=== PATIENT | male | born 1955 | race Caucasian/White ===

== ENCOUNTER 2020-07-08 13:16 | Outpatient (RCR) | payer MEDICARE, OTHER, SELFPAY | END 2020-08-17 08:00 | disposition home or self-care (01) | LOC: HO.WCC 13:16 | PROVIDERS: Visit Provider Physician Assistant | DX: L59.8 Other specified disorders of the skin and subcutaneous tissue related to radiation (principal); C02.9 Malignant neoplasm of tongue, unspecified; C14.0 Malignant neoplasm of pharynx, unspecified | CPT/HCPCS: 99183; 99203 ==

== ENCOUNTER 2020-07-09 09:20 | Outpatient (REF) | payer MEDICARE, OTHER, SELFPAY ==
--- NOTE | ~2020-07-09 | XR_ITS ---
EXAMINATION: XR CHEST CLINICAL INFORMATION: COPD COMPARISON: None TECHNIQUE: 2 views of the chest were obtained. FINDINGS: The cardiac and mediastinal contours are normal. The lungs are well inflated. The lungs are clear. There is no pleural effusion or pneumothorax. There is an old left clavicle fracture. There are degenerative changes of the spine. XR/XR chest 2V IMPRESSION: Well-inflated lungs suggestive of COPD. No evidence for acute disease in the chest.
[2020-07-09 10:37] LABS: MANUAL DIFF FLAG NO
[2020-07-09 11:02] LABS: Anion Gap 11 (12-20); Basophils Percent Auto 0.9 % (0-2); Blood Urea Nitrogen 15 mg/dL (9-16); C Reactive Protein 0.25 mg/dL (< or = 0.50); Calcium 9.5 mg/dL (8.4-10.2); Carbon Dioxide 31 mmol/L (22-29); Chloride 103 mmol/L (96-108); Eosinophils Absolute Auto 0.1 X10*3/uL (0.0-0.4); Eosinophils Percent Auto 1.7 % (0-4); Estimated Glomerular Filt Rate > 60; Glucose Random 105 mg/dL (60-115); Hemoglobin 11.6 g/dl (14.0-18.0); Imm Gran Abs Auto 0.01 X10*3/uL (0.00-0.03); Imm Gran Pct Auto 0.2 % (0.0-0.4); Lymphocytes Absolute Auto 0.7 X10*3/uL (1.2-4.9); Lymphocytes Percent Auto 15.7 % (20-40); Mean Corpuscular HGB Conc 32.2 g/dl (31.0-36.0); Mean Corpuscular Hemoglobin 29.4 pg (27.0-33.0); Mean Corpuscular Volume 91.1 fL (80-98); Mean Platelet Volume 9.4 fL (9.4-12.4); Monocytes Absolute Auto 0.3 X10*3/uL (0.1-1.2); Monocytes Percent Auto 6.9 % (2-11); Neutrophils Absolute Auto 3.5 X10*3/uL (2.0-8.3); Neutrophils Percent Auto 74.6 % (45-73); Platelet Count 267 X10*3/uL (160-400); Potassium 4.3 mmol/L (3.3-5.1); Red Blood Count 3.95 X10*6/uL (4.60-5.80); Red Cell Distribution Width 13.6 % (11.0-16.0); Sodium 141 mmol/L (135-145); White Blood Count 4.6 X10*3/uL (4.8-10.8)
[2020-07-09 11:15] LABS: Estimated Average Glucose 108 mg/dL; Hemoglobin A1c % 5.4 %
[2020-07-09 12:29] LABS: Erythrocyte Sedimentation Rate 16 MM/HR (0-15)
== END 2020-07-09 09:21 | disposition home or self-care (01) ==
LOC: HO.LAB 09:20
PROVIDERS: Visit Provider Physician Assistant
DX: J44.9 Chronic obstructive pulmonary disease, unspecified (principal)
CPT/HCPCS: 36415; 71046; 80048; 83036; 84134; 85025; 85652; 86140

== ENCOUNTER 2020-08-18 07:48 | Outpatient (RCR) | payer MEDICARE, OTHER, SELFPAY | END 2020-09-25 10:00 | disposition home or self-care (01) | LOC: HO.WCC 07:48 | PROVIDERS: Visit Provider Physician Assistant | DX: L59.8 Other specified disorders of the skin and subcutaneous tissue related to radiation (principal); R13.10 Dysphagia, unspecified; C14.0 Malignant neoplasm of pharynx, unspecified; C02.9 Malignant neoplasm of tongue, unspecified; Z87.891 Personal history of nicotine dependence | CPT/HCPCS: 99183; 99211; 99212 ==

== ENCOUNTER 2020-10-01 13:30 | Inpatient (IN) | payer MEDICARE, OTHER, SELFPAY ==
[2020-10-01] VITALS (7 sets, daily range): BP systolic 102–120; BP diastolic 58–76; PULSE 74–121; RESP 13–20; TEMP 36.6–37.3; O2SAT 98–99; BMI 24.7
--- NOTE | ~2020-10-01 | XR_ITS ---
EXAMINATION: XR HIP, RIGHT CLINICAL INFORMATION: Fall, right hip pain, limited range of motion. COMPARISON: None TECHNIQUE: Frontal views of the pelvis and AP and crosstable lateral views of the right hip are obtained for 4 views. FINDINGS: There is a nondisplaced intertrochanteric fracture right hip. There is also nondisplaced transverse oriented fracture superior aspect greater trochanter. There is no destructive process. No dislocation. There are mild degenerative changes bilateral hips. There are degenerative changes lower lumbar spine with multilevel vertebral spurring. The bony pelvis appears intact. No diastases SI joints or pubis. There is some calcification adjacent to the right ischial tuberosity may be related to calcific tendinosis. Soft tissue densities adjacent to the lateral aspect iliac crests correspond to superficial soft tissue folds. Bowel gas unremarkable. XR/XR hip RT w PEL1V IMPRESSION: Intertrochanteric fracture right hip. Also small nondisplaced fracture superior aspect greater trochanter.
--- NOTE | ~2020-10-01 | XR_ITS ---
EXAMINATION: XR CHEST CLINICAL INFORMATION: Trauma, hip fracture COMPARISON: Chest radiographs 07/09/2020 TECHNIQUE: Supine AP x2 views of the chest are obtained. FINDINGS: Lungs are clear. There is no hyperinflation, airspace consolidation, vascular congestion, or effusion. The costophrenic sulci are well-defined. The heart is normal in size. The hilar and mediastinal contours are normal. No visible acute bony abnormality. XR/XR chest 1V IMPRESSION: Unremarkable examination.
--- NOTE | ~2020-10-01 | FL_ITS ---
EXAMINATION: Intraoperative fluoroscopy CLINICAL INFORMATION: Right hip fracture COMPARISON: None. TECHNIQUE: Intraoperative fluoroscopy was provided for use by Dr. Javed. A total of 4 images were saved to PACS. A radiologist was not present during imaging. Today's dictation is only for administrative purposes to document intraoperative fluoroscopic usage. TOTAL FLUOROSCOPIC TIME: 1.1 minutes FL/FL guidance in OR FINDINGS~\^^ Intraoperative fluoroscopy provided for use by Dr. Javed. Please see operative note for detailed findings.
[2020-10-01] MEDS: oxyCODONE HCl Immed Release 5 MG TABLET PO (14:16)
--- NOTE | 2020-10-01 14:54 | ED.FALL ---
HPI - Fall General Chief Complaint: Extremity Injury, Lower Stated Complaint: FALL, RIGHT HIP PAIN Time Seen by Provider: 10/01/20 13:40 Source: patient and EMS Mode of arrival: EMS Limitations: no limitations History of Present Illness HPI Narrative: 65-year-old male with a past medical history of tongue cancer presenting to the ED with complaints of right hip pain via EMS after he pulled the branch too hard and fell onto his right hip while performing yd work. He reports he did not have any symptoms prior to the fall and he only has pain to the right hip after the fall. He denies head injury or loss of consciousness. He denies being on any blood thinners. He denies any other symptoms complaints or concerns at this time. MD complaint: fall Onset (ago): minute(s) (Prior to arrival) Fall from: standing Fall witnessed: no Place fall occurred: street (Outside) Loss of consciousness: none Prolonged down time: no Symptoms prior to fall: none Context: tripped/slipped Location of injury: other (Right hip) Severity: moderate Quality: aching Associated symptoms (after fall): other (Only pain to right hip) Related Data Home Medications Medication Instructions Recorded Confirmed apremilast 30 mg tablet (Otezla) 1 tab PO BID 10/01/20 10/01/20 Allergies Allergy/AdvReac Type Severity Reaction Status Date / Time No Known Allergies Allergy Verified 10/01/20 13:47 Review of Systems Review of Systems: Constitutional : No Fever, No Chills ENT/Mouth : No Ear Pain, No Hoarseness, No sore throat Eyes: No Eye Pain, No Swelling, No Redness, No Foreign Body Cardiovascular : No Chest Pain, No SOB Respiratory : No Cough, No Dyspnea Gastrointestinal : No Nausea, No Vomiting, No Diarrhea, No abdominal Pain Genitourinary : No Dysuria, No Hematuria Musculoskeletal : Positive joint pain, No Myalgias, No Joint Swelling Skin : No Skin lacerations, No rash Neuro : No Weakness, No Numbness, No Paresthesias, No Loss of Consciousness, No Dizziness, No Headache Psych : No Anxiety/Panic, No Depression Heme/Lymph: no easy bruising, no Lymphadenopathy Endocrine : No Polyuria, No Polydipsia Yes all other systems are reviewed and are negative [facility] Past Medical History Attestation statement: The following information was validated with the patient. Medical History Tongue cancer Social History Social History Advance Directives: Yes Advance Directives Information Provided: Yes Advance Directives on File: No Physical Exam Vital Signs: Vital Signs: Last Vital Signs Temp 97.9 F 10/01/20 13:45 Pulse 74 10/01/20 15:56 Resp 18 10/01/20 15:56 BP 116/63 10/01/20 15:56 Pulse Ox 99 10/01/20 15:56 Body Mass Index 24.7 vital signs have been reviewed as normal and appeared to be correct. Blood pressure normal. Heart rate normal. Respiration rate normal. Temperature normal. Oxygen saturation normal. Appearance: Alert. Oriented X3. No acute distress. Head: Normal external exam. Normocephalic. Atraumatic. Eyes: PERRLA. EOMI. Conjunctiva and sclera normal. Eyelids normal. ENT: Pharynx normal. Uvula midline. Moist mucous membranes. Neck: Normal inspection. Neck supple. FROM. No adenopathy. No meningeal signs. CVS: Normal heart rate and rhythm. Heart sound normal. Pulses normal throughout. No murmurs/rales/gallops. Respiratory: No respiratory distress. Painless inspiration. Breath sounds normal. No wheezes/rales/rhonchi noted. Chest nontender. No accessory muscle usage noted or decreased air movement noted. Abdomen: Soft and nontender. Bowel sounds normal in all 4 quadrants. No distention noted. No organomegaly noted. No visible injury noted. Back: Full range of motion noted. No rashes/lesion/induration/fluctuance or signs of infection noted. Skin: Skin warm and dry. Normal skin color. Normal skin turgor. No rashes/lesions/lacerations noted. Extremities: Patient with tenderness to palpation to right hip with limited range of motion external rotation and mild shortening of the right leg. Otherwise all other extremities exhibit normal range of motion and nontender. Neuro: Oriented X 3. No motor deficit. No sensory deficit. Reflexes normal. No focal neuro deficits noted. Vascular: + radial pulses/+ 2 distal pedal pulses/+2 dorsalis pedis b/l. Normal cap refill. No cyanosis noted to upper extremity nails and lower extremity toes nails. Course Course Course Narrative: 14pm - 65-year-old male presenting to the ED with complaints of right hip pain after he pulled a branch to hard while doing yd work at his house falling onto his right hip with pain to right hip. He denies head injury or loss of consciousness. Not on any blood thinners. Denies any other injuries complaints or concerns at this time. On exam patient has tenderness to palpation to right hip with external rotation and mild shortening with limited range of motion due to pain. Otherwise no focal deficits are noted. Gait not tested due to pain. Plan: Labs, chest x-ray for medical clearance, EKG for medical clearance, right hip x-ray, type and screen. Provide oxycodone for the patient's pain and re-evaluate. Reevaluation(s) Reevaluation #1: - right hip x-ray revealed Intertrochanteric fracture right hip. Also small nondisplaced fracture superior aspect greater trochanter. - therefore consulted with Orthopedic Ta-JATINDER Pompa and she recommended Medicine to admit the patient due to his over 58 and that they will plan for surgery. - I discussed this with the patient he understands agrees with this plan at this time I will give him some Dilaudid as well due to he reports oxycodone is not providing any symptomatic relief. - still awaiting labs. Time: 15:49 Reevaluation #2: - labs reviewed patient with a mild baseline anemia similar compared to prior. BUN 21. Random glucose 152. Total protein 6.2. Otherwise all other labs are within normal limits. COVID swab negative. - patient will be admitted at this time to Dr. Laird Time: 16:[address] [facility] - Fall Medical Records Attestation: I reviewed the patient's medical records. Lab Data Attestation: I reviewed the patient's lab results. Result diagrams: 10/01/20 15:45 10/01/20 15:45 Labs: Lab Results 10/01/20 10/01/20 10/01/20 Range/Units 15:45 15:45 15:45 WBC 8.0 (4.8-10.8) X10*3/uL RBC 3.71 L (4.60-5.80) X10*6/uL Hgb 11.3 L (14.0-18.0) g/dl Hct 33.9 L (42-52) % MCV 91.4 (80-98) fL MCH 30.5 (27.0-33.0) pg MCHC 33.3 (31.0-36.0) g/dl RDW 13.5 (11.0-16.0) % Plt Count 215 (160-400) X10*3/uL MPV 9.3 L (9.4-12.4) fL Immature Gran % (Auto) 0.5 H (0.0-0.4) % Neut % (Auto) 88.4 H (45-73) % Lymph % (Auto) 4.9 L (20-40) % Pitt % (Auto) 4.5 (2-11) % Eos % (Auto) 1.3 (0-4) % Baso % (Auto) 0.4 (0-2) % Lymph # (Auto) 0.4 L (1.2-4.9) X10*3/uL Pitt # (Auto) 0.4 (0.1-1.2) X10*3/uL Eos # (Auto) 0.1 (0.0-0.4) X10*3/uL Baso # (Auto) 0.0 (0.0-0.2) X10*3/uL Abs Immat Gran (auto) 0.04 H (0.00-0.03) X10*3/uL Absolute Neuts (auto) 7.1 (2.0-8.3) X10*3/uL Absolute Nucleated RBC 0.000 (0.0-0.012) X10*3/uL Nucleated RBC % (auto) 0.0 (0.0-0.2) /100WBC PT (9.9-13.0) SEC INR (0.9-1.1) Sodium (135-145) mmol/L Potassium (3.3-5.1) mmol/L Chloride (96-108) mmol/L Carbon Dioxide (22-29) mmol/L Anion Gap (12-20) BUN (9-16) mg/dL Creatinine (0.5-1.4) mg/dL Estim Creat Clear Calc Estimated GFR Random Glucose (60-115) mg/dL Calcium (8.4-10.2) mg/dL Magnesium 1.9 (1.6-2.6) mg/dL Total Bilirubin (0.0-1.0) mg/dL AST (5-37) U/L ALT (0-40) U/L Alkaline Phosphatase (39-117) U/L Total Protein (6.5-8.0) g/dL Albumin (3.5-5.0) g/dL COVID-19 (LYNNETTE) Negative (Negative) COVID-19 Clin Com See Note Blood Type Antibody Screen 10/01/20 10/01/20 10/01/20 Range/Units 15:45 15:45 15:45 WBC (4.8-10.8) X10*3/uL RBC (4.60-5.80) X10*6/uL Hgb (14.0-18.0) g/dl Hct (42-52) % MCV (80-98) fL MCH (27.0-33.0) pg MCHC (31.0-36.0) g/dl RDW (11.0-16.0) % Plt Count (160-400) X10*3/uL MPV (9.4-12.4) fL Immature Gran % (Auto) (0.0-0.4) % Neut % (Auto) (45-73) % Lymph % (Auto) (20-40) % Pitt % (Auto) (2-11) % Eos % (Auto) (0-4) % Baso % (Auto) (0-2) % Lymph # (Auto) (1.2-4.9) X10*3/uL Pitt # (Auto) (0.1-1.2) X10*3/uL Eos # (Auto) (0.0-0.4) X10*3/uL Baso # (Auto) (0.0-0.2) X10*3/uL Abs Immat Gran (auto) (0.00-0.03) X10*3/uL Absolute Neuts (auto) (2.0-8.3) X10*3/uL Absolute Nucleated RBC (0.0-0.012) X10*3/uL Nucleated RBC % (auto) (0.0-0.2) /100WBC PT 11.4 (9.9-13.0) SEC INR 1.0 (0.9-1.1) Sodium 140 (135-145) mmol/L Potassium 4.2 (3.3-5.1) mmol/L Chloride 106 (96-108) mmol/L Carbon Dioxide 26 (22-29) mmol/L Anion Gap 12 (12-20) BUN 21 H (9-16) mg/dL Creatinine 1.02 (0.5-1.4) mg/dL Estim Creat Clear Calc 72.5 Estimated GFR > 60 Random Glucose 152 H D (60-115) mg/dL Calcium 9.5 (8.4-10.2) mg/dL Magnesium (1.6-2.6) mg/dL Total Bilirubin 0.3 (0.0-1.0) mg/dL AST 12 (5-37) U/L ALT 16 (0-40) U/L Alkaline Phosphatase 72 (39-117) U/L Total Protein 6.2 L (6.5-8.0) g/dL Albumin 3.9 (3.5-5.0) g/dL COVID-19 (LYNNETTE) (Negative) COVID-19 Clin Com Blood Type O Positive Antibody Screen NEGATIVE Imaging Data Right hip and pelvis x-ray: Attestation: I personally reviewed and interpreted this imaging study as follows: Radiologist's impression: FINDINGS: There is a nondisplaced intertrochanteric fracture right hip. There is also nondisplaced transverse oriented fracture superior aspect greater trochanter. There is no destructive process. No dislocation. There are mild degenerative changes bilateral hips. There are degenerative changes lower lumbar spine with multilevel vertebral spurring. The bony pelvis appears intact. No diastases SI joints or pubis. There is some calcification adjacent to the right ischial tuberosity may be related to calcific tendinosis. Soft tissue densities adjacent to the lateral aspect iliac crests correspond to superficial soft tissue folds. Bowel gas unremarkable.? XR/XR hip RT w PEL1V IMPRESSION: Intertrochanteric fracture right hip. Also small nondisplaced fracture superior aspect greater trochanter. Chest x-ray: Attestation: I personally reviewed and interpreted this imaging study as follows: Radiologist's impression: FINDINGS: Lungs are clear. There is no hyperinflation, airspace consolidation, vascular congestion, or effusion. The costophrenic sulci are well-defined. The heart is normal in size. The hilar and mediastinal contours are normal. No visible acute bony abnormality. XR/XR chest 1V IMPRESSION: Unremarkable examination. ECG Data Attestation: I personally reviewed and interpreted this ECG as follows: ECG interpretation date: 10/01/20 ECG interpretation time: 15:29 Interpretation: Normal sinus rhythm at a ventricular rate of 76 with a normal ND interval normal QRS duration normal QT/QTC interval. No acute ischemic changes are noted. No prior EKGs to compare to in our system at this time. Critical Care Time Critical Care Time Critical Care Time: Yes Total Critical Care Time: 60 Attestation: I personally attest to this time spent taking care of the patient Discharge Plan Discharge Clinical Impression: Fall, Closed intertrochanteric fracture of right femur, Closed fracture of greater trochanter of right femur Patient Disposition: Admitted As Inpatient
--- NOTE | 2020-10-01 15:11 | ECG_ITS ---
Test Reason : FALL Blood Pressure : / mmHG Vent. Rate : 076 BPM Atrial Rate : 076 BPM P-R Int : 146 ms QRS Dur : 086 ms QT Int : 398 ms P-R-T Axes : 077 069 061 degrees QTc Int : 447 ms Normal sinus rhythm Normal ECG No previous ECGs available Referred By: Yoselin Gooden Electronically Signed By:KINDRA SANON
[2020-10-01 15:52] LABS: MANUAL DIFF FLAG NO
[2020-10-01] MEDS: Morphine Sulfate 4 MG/ML CARTRIDGE IVPUSH ×2 (15:56→22:27)
[2020-10-01] MEDS: HYDROmorphone HCl 1 MG/ML SYRINGE IVPUSH (15:56)
[2020-10-01 15:58] LABS: Basophils Percent Auto 0.4 % (0-2); Eosinophils Absolute Auto 0.1 X10*3/uL (0.0-0.4); Eosinophils Percent Auto 1.3 % (0-4); Hematocrit 33.9 % (42-52); Hemoglobin 11.3 g/dl (14.0-18.0); Imm Gran Abs Auto 0.04 X10*3/uL (0.00-0.03); Imm Gran Pct Auto 0.5 % (0.0-0.4); Lymphocytes Absolute Auto 0.4 X10*3/uL (1.2-4.9); Lymphocytes Percent Auto 4.9 % (20-40); Mean Corpuscular HGB Conc 33.3 g/dl (31.0-36.0); Mean Corpuscular Hemoglobin 30.5 pg (27.0-33.0); Mean Corpuscular Volume 91.4 fL (80-98); Mean Platelet Volume 9.3 fL (9.4-12.4); Monocytes Absolute Auto 0.4 X10*3/uL (0.1-1.2); Monocytes Percent Auto 4.5 % (2-11); Neutrophils Absolute Auto 7.1 X10*3/uL (2.0-8.3); Neutrophils Percent Auto 88.4 % (45-73); Platelet Count 215 X10*3/uL (160-400); Red Blood Count 3.71 X10*6/uL (4.60-5.80); Red Cell Distribution Width 13.5 % (11.0-16.0)
[2020-10-01 16:03] LABS: Prothrombin Time 11.4 SEC (9.9-13.0)
[2020-10-01 16:08] LABS: COVID-19 Test Negative (Negative)
[2020-10-01 16:15] LABS: Magnesium 1.9 mg/dL (1.6-2.6)
[2020-10-01 16:16] LABS: Alanine Aminotransferase 16 U/L (0-40); Albumin Level 3.9 g/dL (3.5-5.0); Alkaline Phosphatase 72 U/L (39-117); Anion Gap 12 (12-20); Aspartate Amino Transferase 12 U/L (5-37); Bilirubin Total 0.3 mg/dL (0.0-1.0); Blood Urea Nitrogen 21 mg/dL (9-16); Calcium 9.5 mg/dL (8.4-10.2); Carbon Dioxide 26 mmol/L (22-29); Chloride 106 mmol/L (96-108); Creatinine Clr Calc Pharmacy 72.5; Estimated Glomerular Filt Rate > 60; Glucose Random 152 mg/dL (60-115); Potassium 4.2 mmol/L (3.3-5.1); Sodium 140 mmol/L (135-145); Total Protein 6.2 g/dL (6.5-8.0)
--- NOTE | 2020-10-01 16:28 | PHA.MEDREC ---
Pharmacy Consult ? Medication Reconciliation Pharmacy has completed the medication reconciliation. Patient is only on Otezla. Patient's reports that she will bring in Otezla so he can continue taking the medication while inpatient. Clau Russo, GeorgiD
--- NOTE | 2020-10-01 18:14 | HP_ITS ---
DATE OF SERVICE: 10/01/2020 CHIEF COMPLAINT: Right hip pain. HISTORY OF PRESENT ILLNESS: This is a 65-year-old gentleman with past medical history significant for tongue cancer status post radiation treatment and chemotherapy, recently had a 6-month checkup and was told that everything is fine, presented to [facility] due to right hip pain via EMS. As per the patient he was trying to pull a branch that was too heavy. When the branch came down, the patient fell on his right hip and immediately sustained significant pain, unable to get up. Therefore, called 911 and brought to the emergency room. He denied any head injury, loss of consciousness. In the emergency room, x-rays of the hip revealed intertrochanteric fracture of right hip, also some small nondisplaced fracture of superior aspect of greater trochanter. Patient was treated in the emergency room with IV morphine followed by IV Dilaudid with good relief in symptoms. At present, patient denies any chest pain, no shortness of breath. He denies any headache, lightheadedness, or dizziness. He had no preceding symptoms of near syncope prior to fall. The patient is now being admitted to [facility] for further treatment and evaluation of right hip fracture. PAST MEDICAL HISTORY: Significant for history of psoriasis for which currently he is on Otezla twice daily. He also diagnosed to have tongue cancer last year, status post 35 radiation treatments as well as chemotherapy, being followed at [facility], next appointment with radiologist is in November of 2020. He is being followed by Oncology on yearly basis. 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 He is not a current smoker, but a former smoker. He denies alcohol. He is and lives with his . FAMILY HISTORY: Reviewed and noncontributory. He denies any premature history of coronary artery disease. MEDICATIONS: He is on Otezla 1 tablet p.o. b.i.d. ALLERGIES: HE HAS NO KNOWN DRUG ALLERGIES. REVIEW OF SYSTEMS: CAR BODY INSPECTOR: No headache, no dizziness. CVS: No chest pain or palpitation. RESPIRATORY: No cough or sputum production. GI: He denies any GI symptoms of nausea, vomiting, or diarrhea. : He has no symptoms. PHYSICAL EXAMINATION: GENERAL: The patient is resting comfortably in bed. Does not appear to be in acute distress. VITAL SIGNS: BP 116/63 with a pulse of 74, respiratory rate 18, room air finger oximetry of 99. HEENT: Pupils equal, round, and reactive to light and accommodation. Extraocular muscles intact. Anicteric sclerae. NECK: Supple. No JVD. LUNGS: Clear to auscultation bilaterally. HEART: Regular rate and rhythm. ABDOMEN: Soft, nontender. Bowel sounds are audible. EXTREMITIES: Without clubbing, cyanosis, or edema. SKIN: Without any rashes. There are no bruises noted. LABORATORY DATA: WBC 8000, hemoglobin 11.3, hematocrit 34, platelet count of 215. INR of 1. Sodium 140, potassium 4.2, BUN 21, and a creatinine of 1, blood sugar 152, magnesium 1.9. Normal LFTs. COVID-19 is negative. Blood type is O positive. EKG showed no acute ischemic changes. ASSESSMENT AND PLAN: This is a 65-year-old gentleman with prior history of psoriasis, currently on Otezla; as well as history of tongue cancer, not amenable to surgery, therefore status post radiation and chemotherapy; presented to [facility] after a mechanical fall and sustained a right hip fracture. 1. Right hip intertrochanteric fracture. The patient will be admitted to medical floor, will be placed on oxycodone, and IV morphine for pain control. We will add as needed stool softeners, incentive spirometry, and we will obtain orthopedic consultation. The patient can proceed with hip surgery. Does not require any further cardiac intervention. Has intermediate risk. Seems to have chronic anemia will follow CBC closely. 2. History of psoriasis, we will hold Otezla. 3. History of lung cancer, being followed at [facility], recommended to continue outpatient followup with radiation oncologist and oncologist as previously planned. 4. Deep vein thrombosis prophylaxis. The patient will be placed on compression boots. MD TARYN Red/VALDO / [id number] MTDD
--- NOTE | 2020-10-01 21:55 | P.CONOP_ITS ---
History of Present Illness HPI Consult date: 10/01/20 Chief complaint: Right hip fracture Narrative: :? This is a 65-year-old gentleman with past medical history significant for tongue cancer status post radiation treatment and chemotherapy, recently had a 6-month checkup and was told that everything is fine. He states just prior to arrival he was trying to pull a vine and it let got which caused him to fall, the patient fell on his right hip and was unable to get up or ambulate. Therefore, called 911 and brought to the emergency room.? He denied any head injury, loss of consciousness.? In the emergency room, x-rays of the hip revealed intertrochanteric fracture of right hip, also some small nondisplaced fracture of superior aspect of greater trochanter.?The patient was admitted to the medical service and orthopedics was called for further recommendations. Review of Systems Review of Systems: Yes all other systems are reviewed and are negative PMFSH Past Medical History Medical History (Updated 10/01/20 @ 15:53 by JAYNE Dockery) Tongue cancer Surgical History Surgical History (Updated 10/01/20 @ 21:59 by Nithya Rivero PA-C) History of appendectomy Status post subacromial decompression Social History Social History (Updated 10/01/20 @ 22:00 by Nithya Rivero PA-C) Household Members: Spouse Patient Tobacco Use Status: Former Tobacco user Use of substances other than those prescribed or required for medical reasons: No Advance Directives: Yes Advance Directives Information Provided: Yes Advance Directives on File: No Meds Allergies Allergy/AdvReac Type Severity Reaction Status Date / Time No Known Allergies Allergy Verified 10/01/20 13:47 Active Medications: Current Medications Generic Name Dose Route Start Last Admin Trade Name Freq PRN Reason Stop Dose Admin Acetaminophen 650 mg 10/01/20 16:26 Acetaminophen 325 Mg Tablet PO Q6H PRN Pain, Mild (Pain Scale 1-3) Magnesium Hydroxide 30 ml 10/01/20 16:26 Milk Of Magnesia 30 Ml Oral.Susp PO DAILY PRN Constipation Melatonin 6 mg 10/01/20 16:26 Melatonin 3 Mg Tablet PO BEDTIME PRN Insomnia Morphine Sulfate 4 mg 10/01/20 16:31 Morphine Sulfate 4 Mg/Ml Cartridge IVPUSH Q4H PRN Pain, Severe (Pain Scale 7-10) Ondansetron HCl 4 mg 10/01/20 16:26 Ondansetron Hcl 4 Mg/2 Ml Vial IVPUSH Q8H PRN Nausea and Vomiting Oxycodone HCl 5 mg 10/01/20 16:29 Oxycodone Hcl Immed Release 5 Mg Tablet PO Q6H PRN Pain, Severe (Pain Scale 7-10) Pharmacy Consult 1 each 10/01/20 15:49 Consult Rx Perform Med Rec MISCELLANE ONCE PRN Consult order Sodium Chloride 3 ml 10/02/20 00:00 0.9 % Sodium Chloride Flush 3 Ml Syringe IVFSH [facility] Medications Medication Instructions Recorded Confirmed Last Taken Type apremilast 30 mg tablet (Otezla) 1 tab PO BID 10/01/20 10/01/20 10/01/20 History Physical Exam Vital Signs: Vital Signs: Last Vital Signs Temp 99.1 F 10/01/20 17:42 Pulse 90 10/01/20 18:22 Resp 16 10/01/20 18:22 BP 106/70 10/01/20 18:22 Pulse Ox 99 10/01/20 18:22 Body Mass Index 24.7 Const: General: cooperative, healthy appearing, comfortable, no acute distress, well developed and alert Orientation/consciousness: patient oriented x3 HENMT: Head: Yes normal to inspection, Yes normocephalic and Yes atraumatic Eyes: General: appearance normal, both eyes and all related structures Neck: Neck: Yes normal visual inspection and Yes no lymphadenopathy Resp: Effort & Inspection: normal respiratory effort and able to speak in complete sentences Cardio: Rate: regular rate Peripheral pulses: Peripheral pulses 2+ throughout GI: Inspection: Yes normal to inspection Palpation (GI): Soft to palpation Skin: General skin exam: no rashes or lesions noted Neuro: General: patient oriented x3 Extrem: Other: Right leg skin intact, no open wounds or lacerations. Leg is short and ER, pain wtih log roll. Inability to SLR. pulses present. . xrays of the right hip demonstrate intertrochanteric fracture with greater troch fx. Psych: Appearance: grossly normal Mental Status: mental status grossly normal Results Labs Result Diagrams: 10/01/20 15:45 10/01/20 15:45 Labs: Abnormal lab results 10/01/20 10/01/20 Range/Units 15:45 15:45 RBC 3.71 L (4.60-5.80) X10*6/uL Hgb 11.3 L (14.0-18.0) g/dl Hct 33.9 L (42-52) % MPV 9.3 L (9.4-12.4) fL Immature Gran % (Auto) 0.5 H (0.0-0.4) % Neut % (Auto) 88.4 H (45-73) % Lymph % (Auto) 4.9 L (20-40) % Lymph # (Auto) 0.4 L (1.2-4.9) X10*3/uL Abs Immat Gran (auto) 0.04 H (0.00-0.03) X10*3/uL BUN 21 H (9-16) mg/dL Random Glucose 152 H D (60-115) mg/dL Total Protein 6.2 L (6.5-8.0) g/dL H & H 10/01/20 Range/Units 15:45 Hgb 11.3 L (14.0-18.0) g/dl Hct 33.9 L (42-52) % Coagulation 10/01/20 Range/Units 15:45 INR 1.0 (0.9-1.1) All other labs normal. Assessment and Plan (1) Closed intertrochanteric fracture of right femur: Status: Acute (2) Closed fracture of greater trochanter of right femur: Status: Acute I discussed the case with Dr Javed and explained the extent of the injury to the patient and options available which include surgical intervention. I explained the procedure in detail along with the length of recovery and rehab course. I explained the risk, benefits and alternatives. Risk including, but not limited to infection, blood clots, bleeding, non union or malunion and nerve/tissue damage to surrounding areas. I answered all their questions and with their understanding they have consented to move forward with Operative Fixation of the right hip . The patient with be T&S, med clearance obtained and NPO after midnight. Procedures Date of Service Date of Service: 10/01/20
[2020-10-01] MEDS: Melatonin 3 MG TABLET 6 MG PO (22:27)
--- NOTE | 2020-10-01 22:36 | PC.NURSE ---
PATIENT REPORTING PAIN, OFFERED THIS SCHEDULED OXYCODONE. PATIENT REFUSING STATING THAT DOES NOT WORK I WANT TO COMBINATION OF MEDICATIONS I GOT FROM THE LAST NURSE, I WAS TWO DIFFERENT MEDICATIONS THAT WORKED OFFERED PRN MORPHINE AND MELATONIN TO SLEEP. PATIENT AGREED DID NOT WANT OXYCODONE AND TYLENOL FOR PAIN REDUCTION. AWAITING BED ASSIGNMENT FOR ADMISSION.
[2020-10-02] VITALS (17 sets, daily range): BP systolic 94–135; BP diastolic 51–80; PULSE 69–100; RESP 16–20; TEMP 35.8–36.9; O2SAT 97–100; BMI 26.8
[2020-10-02] MEDS: 0.9 % Sodium Chloride Flush 3 ML SYRINGE IVFLUSH ×2 (01:15→08:29)
[2020-10-02] MEDS: Morphine Sulfate 4 MG/ML CARTRIDGE IVPUSH (08:28)
--- NOTE | 2020-10-02 09:25 | MHC.CM.PN ---
IMM 10/02/20, EMR REVIEWED, PT ADMITTED W/RIGHT HIP FX, SURGERY SCHEDULED TODAY BETWEEN 11AM-12PM, CM MET W/PT AND WHO WAS AT BEDSIDE, PT REPORTS HE LIVES WITH , IS INDEPENDENT W/ALL CARE, NO DME AND NO HOME SERVICES, PT WILL NEED A SCRIPT FOR A WALKER UPON D/C, PT REPORTS HE PREFERS TO GO HOME W/SERVICES AND DOES NOT WANT STR, PT MAY BE WILLING TO GO IF RECCOMMENDED BY PT, PT VERIFIES PCP AND HCP, PTS TO EMAIL CM COPY. D/C PLAN: HOME W/SERVICES VS STR, TRANSPORT TBD PCP: KATELYNN MOON ONCOLOGIST/RADIOLIGIST EVERY 6MOS AT [facility]
[2020-10-02] MEDS: oxyCODONE HCl Immed Release 5 MG TABLET 10 MG PO ×3 (09:55→23:40)
--- NOTE | 2020-10-02 11:47 | P.CONAN_ITS ---
HPI - Anesthesia Eval Consult details Narrative: 65 yo male patient for Right hip gamma nail PMFSH Active Problems Active Problems: All Active Problems (Updated 10/01/20 @ 15:53 by JAYNE Dockery) Fall (Acute) Closed intertrochanteric fracture of right femur (Acute) Closed fracture of greater trochanter of right femur (Acute) Tongue cancer (Acute) Past Medical History Medical History (Updated 10/02/20 @ 14:01 by Sandra Hinds) Tongue cancer Family History Family history of problems with anesthesia: No Surgical History Surgical History (Updated 10/02/20 @ 11:56 by Sandra Hinds) History of appendectomy Status post subacromial decompression History of Problems with Anesthesia: No Social History Social History Household Members: Spouse Housing: House Patient Tobacco Use Status: Former Tobacco user Tobacco use type: Cigar service: No Current occupational status: retired Meds Allergies Allergy/AdvReac Type Severity Reaction Status Date / Time No Known Allergies Allergy Verified 10/02/20 11:27 Active Medications: Current Medications Generic Name Dose Route Start Last Admin Trade Name Freq PRN Reason Stop Dose Admin Acetaminophen 650 mg 10/01/20 16:26 Acetaminophen 325 Mg Tablet PO Q6H PRN Pain, Mild (Pain Scale 1-3) Dextrose/Sodium Chloride 1,000 mls @ 80 mls/hr 10/02/20 11:30 10/02/20 11:34 D5ns IVCONT Not Given .[id number] DAVID Magnesium Hydroxide 30 ml 10/01/20 16:26 Milk Of Magnesia 30 Ml Oral.Susp PO DAILY PRN Constipation Melatonin 6 mg 10/01/20 16:26 10/01/20 22:27 Melatonin 3 Mg Tablet PO 6 mg BEDTIME PRN Administration Insomnia Morphine Sulfate 4 mg 10/01/20 16:31 10/02/20 08:28 Morphine Sulfate 4 Mg/Ml Cartridge IVPUSH 4 mg Q4H PRN Administration Pain, Severe (Pain Scale 7-10) Ondansetron HCl 4 mg 10/01/20 16:26 Ondansetron Hcl 4 Mg/2 Ml Vial IVPUSH Q8H PRN Nausea and Vomiting Oxycodone HCl 10 mg 10/01/20 23:00 10/02/20 09:55 Oxycodone Hcl Immed Release 5 Mg Tablet PO 10 mg Q6H [facility] Administration Pharmacy Consult 1 each 10/01/20 15:49 Consult Rx Perform Med Rec MISCELLANE ONCE PRN Consult order Sodium Chloride 3 ml 10/02/20 00:00 10/02/20 08:29 0.9 % Sodium Chloride Flush 3 Ml Syringe IVFLUSH 3 ml QSHIFT [facility] Administration Home Medications Medication Instructions Recorded Confirmed Last Taken Type apremilast 30 mg tablet (Otezla) 1 tab PO BID 10/01/20 10/01/20 10/01/20 History Exam Exam Date and Time: October 02, 2020 1147 Height,Weight and Vital Signs: Height 5 ft 10 in Weight 84.7 kg Last Vital Signs Temp 97.7 F 10/02/20 11:28 Pulse 71 10/02/20 11:28 Resp 18 10/02/20 11:28 BP 115/72 10/02/20 11:28 Pulse Ox 99 10/02/20 11:28 Pertinent Lab Results Pertinent Lab Results: Laboratory Tests 10/01/20 10/01/20 10/01/20 15:45 15:45 15:45 WBC 8.0 RBC 3.71 L Hgb 11.3 L Hct 33.9 L MCV 91.4 MCH 30.5 MCHC 33.3 RDW 13.5 Plt Count 215 MPV 9.3 L Immature Gran % (Auto) 0.5 H Neut % (Auto) 88.4 H Lymph % (Auto) 4.9 L [place] % (Auto) 4.5 Eos % (Auto) 1.3 Baso % (Auto) 0.4 Lymph # (Auto) 0.4 L [place] # (Auto) 0.4 Eos # (Auto) 0.1 Baso # (Auto) 0.0 Abs Immat Gran (auto) 0.04 H Absolute Neuts (auto) 7.1 Absolute Nucleated RBC 0.000 Nucleated RBC % (auto) 0.0 PT INR Sodium Potassium Chloride Carbon Dioxide Anion Gap BUN Creatinine Estim Creat Clear Calc Estimated GFR Random Glucose Calcium Magnesium 1.9 Total Bilirubin AST ALT Alkaline Phosphatase Total Protein Albumin COVID-19 (LYNNETTE) Negative COVID-19 Clin Com See Note Blood Type Antibody Screen 10/01/20 10/01/20 10/01/20 15:45 15:45 15:45 WBC RBC Hgb Hct MCV MCH MCHC RDW Plt Count MPV Immature Gran % (Auto) Neut % (Auto) Lymph % (Auto) [place] % (Auto) Eos % (Auto) Baso % (Auto) Lymph # (Auto) [place] # (Auto) Eos # (Auto) Baso # (Auto) Abs Immat Gran (auto) Absolute Neuts (auto) Absolute Nucleated RBC Nucleated RBC % (auto) PT 11.4 INR 1.0 Sodium 140 Potassium 4.2 Chloride 106 Carbon Dioxide 26 Anion Gap 12 BUN 21 H Creatinine 1.02 Estim Creat Clear Calc 72.5 Estimated GFR > 60 Random Glucose 152 H D Calcium 9.5 Magnesium Total Bilirubin 0.3 AST 12 ALT 16 Alkaline Phosphatase 72 Total Protein 6.2 L Albumin 3.9 COVID-19 (LYNNETTE) COVID-19 Clin Com Blood Type O Positive Antibody Screen NEGATIVE EKG 10/01/20: NSR. 76 CXR 10/01/20: Unremarkable exam Airway Mallampati Class: III TM Dist: >3cm (Some recession of lower chin) Neck ROM: Limited Heart: RRR Lungs: CTAB Assessment and Plan Final Anesthetic Review Family History of Problems with Anesthesia: No History of Problems with Anesthesia: No NPO: Yes ASA Class: III Final Preanesthetic Review: No Changes in Pt Med Stat, Meds/Allgs Chart Reviewed, Consent Obtained/Reviewed and Anes Risks/Benef Reviewed Patient Risk: Intermediate Procedure Risk: Intermediate Assessment/Block/Sedation in SS: Assess/Block/Sedation-SS Anesthetic Plan Anesthetic Plan: GA Disposition: Standard PACU and Inp. Admit - Standard Bed
--- NOTE | 2020-10-02 14:28 | W.PM.OPN ---
Operative Note Operative Note Date of Service: 10/02/20 Narrative: OPERATIVE NOTE FOR GAMMA NAIL FIXATION SURGEON:Dr Jaimee Javed MD (Kelly) ELECTRIC ARC FURNACE OPERATOR: No legal administrative assistant PREOP DIAGNOSIS : Intertrochanteric fracture right hip POSTOP DIAGNOSIS: Same OPERATIVE PROCEDURE: OPERATIVE FIXATION rightHIP/FEMUR WITH LOCKED JUAN MANUEL short GAMMA NAIL CLINICAL NOTE: This gentlemanfell and injured his right hip prior to the admission. Was subsequently brought to the emergency department. Was admitted to a gym see with the above diagnosis. After medical clearance and discussing the risks, benefits, and alternatives of the surgery as well as the rehabilitation course he was mutually agreed upon to carry out following procedure. OPERATIVE PROCEDURE Under a generalanesthetic the patient was placed supine on the fracture table. The leftleg was flexed and externally rotated out of the way. The operative rightleg was placed in standard boot traction. Closed reduction was performed under fluoroscopic guidance. This demonstrated the fracture to be reduced in a good position. Therefore the right hip and leg was then prepped and draped in standard barrier technique. Surgical time-out was then performed. The patient was identified. Procedure confirmed. Medical and allergy history is were reviewed. Preoperative antibiotics were given. Standard DVT prophylaxis was in place. All other items were discussed and agreed upon. Standard approach to tip of the trochanter was carried out. This was taken down through subcutaneous tissues with hemostasis achieved along way using electrocautery. Fascia rob was divided along the length of the incision. The muscle was then divided bluntly to the tip of trochanter. Using a curved awl and under fluoroscopic guidance tip of the trochanter was entered. The guidewire was then subsequently passed through the curved awl and was successfully passed into the distal segment. A short gamma nail selected.This nail at 125 degree angle was selected and brought up onto the table. The step Reamer was used in standard fashion. The nail was then assembled onto the guide in standard fashion and then passed over the guidewire across the fracture site when the guidewire was then removed. The nail was then seated until he was in the appropriate position for the lag screw. Through a stab incision using the guide for the 125 degree angle, the guides were set onto the lateral surface of the femur. Under fluoroscopic guidance the guidewire was inserted just inferior to the midline on the AP view and into the center of the head on the lateral view. This was measured to 105 mm and this leg screw was selected and brought up onto the table. The guidewire was over reamed under fluoroscopic guidance. The lag screw was then inserted until it was into the subchondral bone with excellent purchase. The set screw was then placed in standard fashion. And then the guide was removed. Turning attention to the distal lock through the guide the stab incision was made the guides placed along the lateral aspect of the femur was drilled measured and a 37.5 mm locking screw was inserted with excellent purchase length. At this point final images were taken in AP and lateral he positions demonstrating fracture reduced. All the hardware in the appropriate position and therefore we proceeded to closure. Proximal wound was closed using 2. Dexon deep and 2-0 Dexon to approximate the skin. Is the skin was closed with jarocho. Similarly the distal incisions were closed with interrupted 2-0 Dexon and then jarocho. Sterile dressings were then applied. The patient's anesthesia was then reversed. They were taken out of traction and transferred supine to the room bed then to the recovery room in good condition. Intraoperatively there was approximately 100 cc of blood loss. No intraop transfusions or complications
[2020-10-02] MEDS: fentaNYL citrate/PF 100 MCG/2 ML VIAL 50 MCG IVPUSH (14:55)
[2020-10-02] MEDS: fentaNYL citrate/PF 100 MCG/2 ML VIAL 25 MCG IVPUSH (15:00)
--- NOTE | 2020-10-02 15:59 | P.PNIM_ITS ---
Subjective Subjective Date of Service: 10/02/20 Interval History: Patient offers no acute complaints resting comfortably is NPO, complaining of being lightheaded when he gets up, feels hungry. Review of Systems General no headache ,no dizziness, no fever chills. CVS no chest pain, no palpitation. Respiratory no cough no sob. Gastrointestinal no nausea, no vomiting, no abdominal pain Physical Exam Vital Signs: Vital Signs: Last Vital Signs Temp 97.1 F 10/02/20 15:25 Pulse 80 10/02/20 15:25 Resp 17 10/02/20 15:25 BP 117/66 10/02/20 15:25 Pulse Ox 99 10/02/20 15:25 Body Mass Index 26.8 Const: Other: General resting comfortably in no acute distress. Neck supple no JVD. CVS regular rate rhythm, Respiratory lungs clear to auscultation, no respiratory distress, no wheeze, no rhonchi. Gastrointestinal abdomen soft, nontender, bowel sounds audible, no guarding , no rigidity. Extremities no edema. Neuro nonfocal Skin rash left anterior leg and right leg laterally, no open sores Objective Data Current Medications Generic Name Dose Route Start Last Admin Trade Name Freq PRN Reason Stop Dose Admin Acetaminophen 650 mg 10/01/20 16:26 Acetaminophen 325 Mg Tablet PO Q6H PRN Pain, Mild (Pain Scale 1-3) Aspirin 325 mg 10/03/20 22:00 Aspirin 325 Mg Tablet PO BID@1000,2200 [facility] Fentanyl 25 mcg 10/02/20 14:35 10/02/20 15:00 Fentanyl Citrate/Pf 100 Mcg/2 Ml Vial IVPUSH 25 mcg Q5M PRN Administration Pain, Moderate (Pain Scale 4-6 Fentanyl 50 mcg 10/02/20 14:35 10/02/20 14:55 Fentanyl Citrate/Pf 100 Mcg/2 Ml Vial IVPUSH 50 mcg Q5M PRN Administration Pain, Severe (Pain Scale 7-10) Dextrose/Sodium Chloride 1,000 mls @ 80 mls/hr 10/02/20 11:30 10/02/20 11:34 D5ns IVCONT Not Given .[id number] [facility] Ketorolac Tromethamine 15 mg 10/02/20 15:43 Ketorolac Tromethamine 15 Mg/Ml Vial IVPUSH Q6H [facility] Magnesium Hydroxide 30 ml 10/01/20 16:26 Milk Of Magnesia 30 Ml Oral.Susp PO DAILY PRN Constipation Melatonin 6 mg 10/01/20 16:26 10/01/20 22:27 Melatonin 3 Mg Tablet PO 6 mg BEDTIME PRN Administration Insomnia Morphine Sulfate 4 mg 10/01/20 16:31 10/02/20 08:28 Morphine Sulfate 4 Mg/Ml Cartridge IVPUSH 4 mg Q4H PRN Administration Pain, Severe (Pain Scale 7-10) Ondansetron HCl 4 mg 10/01/20 16:26 Ondansetron Hcl 4 Mg/2 Ml Vial IVPUSH Q8H PRN Nausea and Vomiting Ondansetron HCl 4 mg 10/02/20 14:35 Ondansetron Hcl 4 Mg/2 Ml Vial IVPUSH ONCE PRN Nausea and Vomiting Oxycodone HCl 10 mg 10/01/20 23:00 10/02/20 09:55 Oxycodone Hcl Immed Release 5 Mg Tablet PO 10 mg Q6H DAVID Administration Oxycodone HCl 5 mg 10/02/20 14:35 Oxycodone Hcl Immed Release 5 Mg Tablet PO ONCE PRN Pain, Moderate (Pain Scale 4-6 Oxycodone HCl 10 mg 10/02/20 14:35 Oxycodone Hcl Immed Release 5 Mg Tablet PO ONCE PRN Pain, Severe (Pain Scale 7-10) Pharmacy Consult 1 each 10/01/20 15:49 Consult Rx Perform Med Rec MISCELLANE ONCE PRN Consult order Sodium Chloride 3 ml 10/02/20 00:00 10/02/20 08:29 0.9 % Sodium Chloride Flush 3 Ml Syringe IVFLUSH 3 ml QSPRFT DAVID Administration Sodium Chloride 3 ml 10/02/20 16:00 0.9 % Sodium Chloride Flush 3 Ml Syringe IVFLUSH QSHIFT [facility] Labs CBC & Chem 7: 10/01/20 15:45 10/01/20 15:45 Labs: Laboratory Results - last 24 hr 10/01/20 10/01/20 10/01/20 15:45 15:45 15:45 MCV 91.4 MCH 30.5 MCHC 33.3 RDW 13.5 Plt Count 215 MPV 9.3 L Immature Gran % (Auto) 0.5 H Neut % (Auto) 88.4 H Lymph % (Auto) 4.9 L [place] % (Auto) 4.5 Eos % (Auto) 1.3 Baso % (Auto) 0.4 Lymph # (Auto) 0.4 L [place] # (Auto) 0.4 Eos # (Auto) 0.1 Baso # (Auto) 0.0 Abs Immat Gran (auto) 0.04 H Absolute Neuts (auto) 7.1 Absolute Nucleated RBC 0.000 Nucleated RBC % (auto) 0.0 PT INR Anion Gap Estim Creat Clear Calc Estimated GFR Random Glucose Calcium Magnesium 1.9 Total Bilirubin AST ALT Alkaline Phosphatase Total Protein Albumin COVID-19 (LYNNETTE) Negative COVID-19 Clin Com See Note Blood Type Antibody Screen 10/01/20 10/01/20 10/01/20 15:45 15:45 15:45 MCV MCH MCHC RDW Plt Count MPV Immature Gran % (Auto) Neut % (Auto) Lymph % (Auto) [place] % (Auto) Eos % (Auto) Baso % (Auto) Lymph # (Auto) [place] # (Auto) Eos # (Auto) Baso # (Auto) Abs Immat Gran (auto) Absolute Neuts (auto) Absolute Nucleated RBC Nucleated RBC % (auto) PT 11.4 INR 1.0 Anion Gap 12 Estim Creat Clear Calc 72.5 Estimated GFR > 60 Random Glucose 152 H D Calcium 9.5 Magnesium Total Bilirubin 0.3 AST 12 ALT 16 Alkaline Phosphatase 72 Total Protein 6.2 L Albumin 3.9 COVID-19 (LYNNETTE) COVID-19 Clin Com Blood Type O Positive Antibody Screen NEGATIVE Assessment and Plan (1) Anemia: Status: Acute (2) Fall: Status: Acute (3) Closed intertrochanteric fracture of right femur: Status: Acute (4) Tongue cancer: Status: Acute Assessment and Plan: 65-year-old gentleman with prior history of psoriasis, currently on Otezla; as well as history of tongue cancer, not amenable to surgery, therefore status post radiation and chemotherapy; presented to [facility] after a mechanical fall and sustained a right hip fracture. 1. Right hip intertrochanteric fracture.? Good pain control, continue oxycodone and IV morphine, patient seen by orthopedic surgeon and scheduled to undergoes surgery today Will start IV D5 normal saline since patient lightheaded , continue softeners, incentive spirometry, and follow CBC 2. History of psoriasis, will resume Otezla. Family to bring medicine from home. 3. History of tongue cancer, being followed at [facility], recommended to continue outpatient followup with radiation oncologist and oncologist as previously planned. 4. Normocytic anemia, question chronic, hematocrit dropped but stable likely due to acute hip fracture, follow CBC closely, will initiate anemia workup if noted to have further drop in hematocrit 5. Deep vein thrombosis prophylaxis.? on compression boots. Anticoagulation as per Orthopedic surgery. Quality Stroke Does the patient have a stroke diagnosis?: No VTE Prior VTE?: No VTE Risk Level:: Medical - moderate - high VTE Device Contraindication: N/A - Device Ordered VTE Drug Contraindication: Treatment Not Indicated
[2020-10-02] MEDS: Ketorolac Tromethamine 15 MG/ML VIAL IVPUSH ×2 (16:14→21:01)
[2020-10-02] MEDS: Dextrose 5 % and 0.9 % NaCl 1,000 ML 80 ML IVCONT (16:15)
[2020-10-02] MEDS: Melatonin 3 MG TABLET 6 MG PO (23:37)
[2020-10-03] VITALS (8 sets, daily range): BP systolic 104–123; BP diastolic 61–70; PULSE 77–98; RESP 14–18; TEMP 36.1–36.6; O2SAT 98–100
[2020-10-03] MEDS: Ketorolac Tromethamine 15 MG/ML VIAL IVPUSH ×4 (03:08→22:10)
[2020-10-03] MEDS: Dextrose 5 % and 0.9 % NaCl 1,000 ML 80 ML IVCONT (03:14)
[2020-10-03] MEDS: oxyCODONE HCl Immed Release 5 MG TABLET 10 MG PO ×4 (05:59→22:09)
[2020-10-03 06:46] LABS: Hematocrit 28.6 % (42-52); Hemoglobin 9.3 g/dl (14.0-18.0)
--- NOTE | 2020-10-03 07:41 | P.PNOP_ITS ---
Subjective Subjective Date of Service: 10/03/20 Interval history: POD1 s/p lt hip IMN with Dr. Javed. Patient resting comfortably in bed. No overnight events. Pain is well managed. About to work with P.T. and O.T. who were at bedside. Physical Exam Vital Signs: Vital Signs: Last Vital Signs Temp 97.6 F 10/03/20 07:32 Pulse 77 10/03/20 07:32 Resp 17 10/03/20 07:32 BP 111/61 10/03/20 07:32 Pulse Ox 100 10/03/20 07:32 Body Mass Index 26.8 Const: General: cooperative, healthy appearing and no acute distress Resp: Effort & Inspection: normal respiratory effort and able to speak in complete sentences Cardio: Rate: regular rate Peripheral pulses: Peripheral pulses 2+ throughout GI: Palpation (GI): Soft to palpation Skin: Lesions: no lesions Rashes: no rashes Extrem: Other: Left hip no ecchymosis, redness or drainage. Dressings remain intact clean and dry. Patient is able to dorsiflex and plantar flex. NVI. Procedures Date of Service Date of Service: 10/03/20 Progress Note: A&P Assessment and plan (1) Closed fracture of greater trochanter of right femur: Status: Acute Assessment and Plan: Continue pain mgmnt Begin ASA for dvt ppx begin PT for right hip IMN Dispo planning-Pending PT eval, pain mgmnt Fall Risk Details Current Medications: Current Medications Generic Name Dose Route Start Last Admin Trade Name Freq PRN Reason Stop Dose Admin Acetaminophen 650 mg 10/01/20 16:26 Acetaminophen 325 Mg Tablet PO Q6H PRN Pain, Mild (Pain Scale 1-3) Aspirin 325 mg 10/03/20 22:00 Aspirin 325 Mg Tablet PO BID@1000,2200 [facility] Fentanyl 25 mcg 10/02/20 14:35 10/02/20 15:00 Fentanyl Citrate/Pf 100 Mcg/2 Ml Vial IVPUSH 25 mcg Q5M PRN Administration Pain, Moderate (Pain Scale 4-6 Fentanyl 50 mcg 10/02/20 14:35 10/02/20 14:55 Fentanyl Citrate/Pf 100 Mcg/2 Ml Vial IVPUSH 50 mcg Q5M PRN Administration Pain, Severe (Pain Scale 7-10) Dextrose/Sodium Chloride 1,000 mls @ 80 mls/hr 10/02/20 11:30 10/03/20 03:14 D5ns IVCONT 80 mls/hr .[id number] [facility]ID Administration Ketorolac Tromethamine 15 mg 10/02/20 15:43 10/03/20 03:08 Ketorolac Tromethamine 15 Mg/Ml Vial IVPUSH 15 mg Q6H [facility]ID Administration Magnesium Hydroxide 30 ml 10/01/20 16:26 Milk Of Magnesia 30 Ml Oral.Susp PO DAILY PRN Constipation Melatonin 6 mg 10/01/20 16:26 10/02/20 23:37 Melatonin 3 Mg Tablet PO 6 mg BEDTIME PRN Administration Insomnia Morphine Sulfate 4 mg 10/01/20 16:31 10/02/20 08:28 Morphine Sulfate 4 Mg/Ml Cartridge IVPUSH 4 mg Q4H PRN Administration Pain, Severe (Pain Scale 7-10) Patient Own 1 each 10/02/20 21:00 10/02/20 20:59 Medication ( PO 1 each Apremilast [Otezla] BID DAVID Administration 30 Mg Tablet) Ondansetron HCl 4 mg 10/01/20 16:26 Ondansetron Hcl 4 Mg/2 Ml Vial IVPUSH Q8H PRN Nausea and Vomiting Ondansetron HCl 4 mg 10/02/20 14:35 Ondansetron Hcl 4 Mg/2 Ml Vial IVPUSH ONCE PRN Nausea and Vomiting Oxycodone HCl 10 mg 10/01/20 23:00 10/03/20 05:59 Oxycodone Hcl Immed Release 5 Mg Tablet PO 10 mg Q6H DAVID Administration Oxycodone HCl 5 mg 10/02/20 14:35 Oxycodone Hcl Immed Release 5 Mg Tablet PO ONCE PRN Pain, Moderate (Pain Scale 4-6 Oxycodone HCl 10 mg 10/02/20 14:35 Oxycodone Hcl Immed Release 5 Mg Tablet PO ONCE PRN Pain, Severe (Pain Scale 7-10) Pharmacy Consult 1 each 10/01/20 15:49 Consult Rx Perform Med Rec MISCELLANE ONCE PRN Consult order Sodium Chloride 3 ml 10/02/20 16:00 10/03/20 07:33 0.9 % Sodium Chloride Flush 3 Ml Syringe IVFLUSH Not Given QSHIFT PENDING S[facility] TO [facility] Time Spent With Patient Time: Total time spent is greater than 50% in coordination of care (as documented) at patient's floor/unit and/or counseling patient: Time with patient: less than 15 minutes Quality Stroke Does the patient have a stroke diagnosis?: No VTE Prior VTE?: No VTE Risk Level:: Medical - moderate - high VTE Device Contraindication: N/A - Device Ordered VTE Drug Contraindication: Treatment Not Indicated
[2020-10-03 09:31] LABS: Iron 26 mcg/dL (45-160); Percent Iron Saturation 14 % (15-50); Total Iron Binding Capacity 192 mcg/dL (228-428); Unsaturated Iron Binding 166 ug/dL
[2020-10-03 10:28] LABS: Ferritin 1731 ng/mL (20-250); Folate 4.9 ng/mL (> or = 4.0); Vitamin B12 578 pg/mL (200-900)
--- NOTE | 2020-10-03 12:32 | P.PNIM_ITS ---
Subjective Subjective Date of Service: 10/03/20 Interval History: Being followed for right hip surgery, good pain control offers no acute complaints of lightheadedness or dizziness ambulated short distances and now sitting on chair. Review of Systems General no headache ,no dizziness, no fever chills.? CVS no chest pain, no palpitation.? Respiratory no cough no sob.? Gastrointestinal no nausea, no vomiting, no abdominal pain Physical Exam Vital Signs: Vital Signs: Last Vital Signs Temp 97.6 F 10/03/20 11:35 Pulse 79 10/03/20 11:35 Resp 17 10/03/20 11:35 BP 106/68 10/03/20 11:35 Pulse Ox 100 10/03/20 11:35 Body Mass Index 26.8 General? resting c omfortably in no a cute distress.? Ne ck? supple no JVD. CVS? regular rate rhythm, Respirato ry lungs clear to auscultation, no r espiratory distres s, no wheeze, no r honchi. Gastrointe stinal abdomen sof t, nontender, hans l sounds audible, no guarding , no r igidity. Extremiti es no edema. Neuro nonfocal Skin pso riatic patch left anterior leg and r ight leg laterally , no open sores Objective Data Current Medications Generic Name Dose Route Start Last Admin Trade Name Freq PRN Reason Stop Dose Admin Acetaminophen 650 mg 10/01/20 16:26 Acetaminophen 325 Mg Tablet PO Q6H PRN Pain, Mild (Pain Scale 1-3) Aspirin 325 mg 10/03/20 22:00 Aspirin 325 Mg Tablet PO BID@1000,2200 DAVID Fentanyl 25 mcg 10/02/20 14:35 10/02/20 15:00 Fentanyl Citrate/Pf 100 Mcg/2 Ml Vial IVPUSH 25 mcg Q5M PRN Administration Pain, Moderate (Pain Scale 4-6 Fentanyl 50 mcg 10/02/20 14:35 10/02/20 14:55 Fentanyl Citrate/Pf 100 Mcg/2 Ml Vial IVPUSH 50 mcg Q5M PRN Administration Pain, Severe (Pain Scale 7-10) Ketorolac Tromethamine 15 mg 10/02/20 15:43 10/03/20 08:42 Ketorolac Tromethamine 15 Mg/Ml Vial IVPUSH 15 mg Q6H DAVID Administration Magnesium Hydroxide 30 ml 10/01/20 16:26 Milk Of Magnesia 30 Ml Oral.Susp PO DAILY PRN Constipation Melatonin 6 mg 10/01/20 16:26 10/02/20 23:37 Melatonin 3 Mg Tablet PO 6 mg BEDTIME PRN Administration Insomnia Morphine Sulfate 4 mg 10/01/20 16:31 10/02/20 08:28 Morphine Sulfate 4 Mg/Ml Cartridge IVPUSH 4 mg Q4H PRN Administration Pain, Severe (Pain Scale 7-10) Patient Own 1 each 10/02/20 21:00 10/03/20 08:41 Medication ( PO 1 each Apremilast [Otezla] BID DAVID Administration 30 Mg Tablet) Ondansetron HCl 4 mg 10/01/20 16:26 Ondansetron Hcl 4 Mg/2 Ml Vial IVPUSH Q8H PRN Nausea and Vomiting Ondansetron HCl 4 mg 10/02/20 14:35 Ondansetron Hcl 4 Mg/2 Ml Vial IVPUSH ONCE PRN Nausea and Vomiting Oxycodone HCl 10 mg 10/01/20 23:00 10/03/20 10:28 Oxycodone Hcl Immed Release 5 Mg Tablet PO 10 mg Q6H DAVID Administration Oxycodone HCl 5 mg 10/02/20 14:35 Oxycodone Hcl Immed Release 5 Mg Tablet PO ONCE PRN Pain, Moderate (Pain Scale 4-6 Oxycodone HCl 10 mg 10/02/20 14:35 Oxycodone Hcl Immed Release 5 Mg Tablet PO ONCE PRN Pain, Severe (Pain Scale 7-10) Pharmacy Consult 1 each 10/01/20 15:49 Consult Rx Perform Med Rec MISCELLANE ONCE PRN Consult order Sodium Chloride 3 ml 10/02/20 16:00 10/03/20 07:33 0.9 % Sodium Chloride Flush 3 Ml Syringe IVFLUSH Not Given QSHIFT [facility] Labs CBC & Chem 7: 10/03/20 06:14 10/01/20 15:45 Labs: Laboratory Results - last 24 hr 10/03/20 10/03/20 08:50 08:50 Iron 26 L TIBC 192 L % Saturation 14 L Unsat Iron Binding 166 Ferritin 1731 H Vitamin B12 578 Folate 4.9 Assessment and Plan (1) Anemia: Status: Acute (2) Closed intertrochanteric fracture of right femur: Status: Acute Assessment and Plan: 65-year-old gentleman with prior history of psoriasis, currently on Otezla; as well as history of tongue cancer, not amenable to surgery, therefore status post radiation and chemotherapy; presented to [facility] after a mechanical fall and sustained a right hip fracture. 1. Right hip intertrochanteric fracture.? POD 1 s/p Rt. hip IMN with Dr. Javed ? ? Good pain control, continue oxycodone, DC IV fluid, continue? softeners, incentive spirometry, tolerating physical therapy . 2. History of psoriasis, will resume Otezla.? Family to bring medicine from home. 3. History of tongue cancer, being followed at [facility], recommended to continue outpatient followup with radiation oncologist and oncologist as previously planned. 4. Normocytic anemia, question chronic and related to anemia of chronic disease with history of psoriasis hematocrit dropped but stable patient asymptomatic, hold blood transfusion, will check iron studies before placing on iron supplement, will check ferritin, B12 folate and stool guaiac. 5. Deep vein thrombosis prophylaxis.? Continue aspirin for? Anticoagulation as per Orthopedic surgery. Quality Stroke Does the patient have a stroke diagnosis?: No VTE Prior VTE?: No VTE Risk Level:: Medical - moderate - high VTE Device Contraindication: N/A - Device Ordered VTE Drug Contraindication: Treatment Not Indicated
--- NOTE | 2020-10-03 13:58 | HO.POSTANES ---
Post Anesthesia Evaluation Post Anesthesia Evaluation Vital Signs: Vital Signs Temp Pulse Resp BP Pulse Ox 10/03/20 13:42 79 106/68 100 10/03/20 11:35 97.6 F 79 17 106/68 100 10/03/20 07:54 77 111/61 100 10/03/20 07:32 97.6 F 77 17 111/61 100 10/03/20 03:16 97.1 F 81 17 109/62 100 Anesthesia: General Endotracheal-GETA Mental Status: Awake Pain Control: Satisfactory Nausea/Vomiting: None Hydration: Adequate Anesthesia-Related Issues: No Anes. Related Issues
[2020-10-03] MEDS: Milk of Magnesia 30 ML ORAL.SUSP PO (16:57)
[2020-10-03] MEDS: 0.9 % Sodium Chloride Flush 3 ML SYRINGE IVFLUSH ×2 (16:58→22:11)
[2020-10-03] MEDS: Aspirin 325 MG TABLET PO (22:09)
[2020-10-04 04:00] VITALS: BP 115/67; PULSE 78; RESP 18; TEMP 36; O2SAT 98
[2020-10-04] MEDS: Ketorolac Tromethamine 15 MG/ML VIAL IVPUSH ×2 (05:54→10:00)
[2020-10-04] MEDS: oxyCODONE HCl Immed Release 5 MG TABLET 10 MG PO ×2 (05:54→09:59)
[2020-10-04] MEDS: Milk of Magnesia 30 ML ORAL.SUSP PO (06:08)
[2020-10-04 08:00] VITALS: BP 133/83; PULSE 90; RESP 18; TEMP 36.3; O2SAT 99
[2020-10-04] MEDS: Aspirin 325 MG TABLET PO (08:39)
[2020-10-04] MEDS: 0.9 % Sodium Chloride Flush 3 ML SYRINGE IVFLUSH (08:41)
--- NOTE | 2020-10-04 10:03 | P.F2F_ITS ---
Service Date Service Date: 10/04/20 Encounter Date of encounter: 10/04/20 Reasons for Services Reason for physical therapy: home safety and mobility, therapeutic exercises, restore joint function, gait/transfer training, assess need for DME and ADL training Reason for occupational therapy: home safety and mobility, therapeutic exercises, restore joint function, gait/transfer training, assess need for DME and ADL training Homebound: Leaving the home is medically contraindicated at this time without the asist of a device and/or another person due th the listed conditions above and below. Reason homebound: unsteady gait / fall risk, pain with ambulation, pain with transfers, poor balance / fall risk and unable to drive Homebound supporting statement: Pt. is considered homebound due to recent surgery. Unable to drive, poor balance, poor gait mechanics. Certification: Based on the above findings, I certify that this patient is confined to the home and needs intermittent custodial care, physical therapy and/or speech therapy, or continues to need occupational therapy. The patient is under my care, and I have initiated the establishment of the plan of care. The patient will be followed by a physician who will periodically review the plan of care.
--- NOTE | 2020-10-04 10:08 | HO.PM.IMPN ---
Subjective Subjective Date of Service: 10/04/20 Interval History: Offers no acute complaints has good right hip pain control denies lightheadedness dizziness no other acute issues overnight participating with physical therapy. Review of Systems General no headache ,no dizziness, no fever chills.? CVS no chest pain, no palpitation.? Respiratory no cough ,no sob.? Gastrointestinal no nausea, no vomiting, no abdominal pain Physical Exam Vital Signs: Vital Signs: Last Vital Signs Temp 97.4 F 10/04/20 08:00 Pulse 90 10/04/20 08:00 Resp 18 10/04/20 08:00 BP 133/83 10/04/20 08:00 Pulse Ox 99 10/04/20 08:00 Body Mass Index 26.8 General resting comfortably in no acute distress. Neck supple no JVD. CVS regular rate rhythm, Respiratory lungs clear to auscultation, no respiratory distress, no wheeze, no rhonchi. Gastrointestinal abdomen soft, nontender, bowel sounds audible Extremities no edema. Neuro nonfocal Skin no rash Objective Data Current Medications Generic Name Dose Route Start Last Admin Trade Name Freq PRN Reason Stop Dose Admin Acetaminophen 650 mg 10/01/20 16:26 Acetaminophen 325 Mg Tablet PO Q6H PRN Pain, Mild (Pain Scale 1-3) Aspirin 325 mg 10/03/20 22:00 10/04/20 08:39 Aspirin 325 Mg Tablet PO 325 mg BID@1000,2200 DAVID Administration Fentanyl 25 mcg 10/02/20 14:35 10/02/20 15:00 Fentanyl Citrate/Pf 100 Mcg/2 Ml Vial IVPUSH 25 mcg Q5M PRN Administration Pain, Moderate (Pain Scale 4-6 Fentanyl 50 mcg 10/02/20 14:35 10/02/20 14:55 Fentanyl Citrate/Pf 100 Mcg/2 Ml Vial IVPUSH 50 mcg Q5M PRN Administration Pain, Severe (Pain Scale 7-10) Ketorolac Tromethamine 15 mg 10/02/20 15:43 10/04/20 10:00 Ketorolac Tromethamine 15 Mg/Ml Vial IVPUSH 15 mg Q6H DAVID Administration Magnesium Hydroxide 30 ml 10/01/20 16:26 10/04/20 06:08 Milk Of Magnesia 30 Ml Oral.Susp PO 30 ml DAILY PRN Administration Constipation Melatonin 6 mg 10/01/20 16:26 10/02/20 23:37 Melatonin 3 Mg Tablet PO 6 mg BEDTIME PRN Administration Insomnia Morphine Sulfate 4 mg 10/01/20 16:31 10/02/20 08:28 Morphine Sulfate 4 Mg/Ml Cartridge IVPUSH 4 mg Q4H PRN Administration Pain, Severe (Pain Scale 7-10) Patient Own 1 each 10/02/20 21:00 10/04/20 08:40 Medication ( PO 1 each Apremilast [Otezla] BID DAVID Administration 30 Mg Tablet) Ondansetron HCl 4 mg 10/01/20 16:26 Ondansetron Hcl 4 Mg/2 Ml Vial IVPUSH Q8H PRN Nausea and Vomiting Ondansetron HCl 4 mg 10/02/20 14:35 Ondansetron Hcl 4 Mg/2 Ml Vial IVPUSH ONCE PRN Nausea and Vomiting Oxycodone HCl 10 mg 10/01/20 23:00 10/04/20 09:59 Oxycodone Hcl Immed Release 5 Mg Tablet PO 10 mg Q6H DAVID Administration Oxycodone HCl 5 mg 10/02/20 14:35 Oxycodone Hcl Immed Release 5 Mg Tablet PO ONCE PRN Pain, Moderate (Pain Scale 4-6 Oxycodone HCl 10 mg 10/02/20 14:35 Oxycodone Hcl Immed Release 5 Mg Tablet PO ONCE PRN Pain, Severe (Pain Scale 7-10) Pharmacy Consult 1 each 10/01/20 15:49 Consult Rx Perform Med Rec MISCELLANE ONCE PRN Consult order Sodium Chloride 3 ml 10/02/20 16:00 10/04/20 08:41 0.9 % Sodium Chloride Flush 3 Ml Syringe IVFLUSH 3 ml QSHIFT DAVID Administration Labs CBC & Chem 7: 10/03/20 06:14 10/01/20 15:45 Labs: Laboratory Results - last 24 hr 10/03/20 10/03/20 08:50 08:50 Ferritin 1731 H Vitamin B12 578 Folate 4.9 Assessment and Plan (1) Anemia: Status: Acute (2) Closed intertrochanteric fracture of right femur: Status: Acute Assessment and Plan: 65-year-old gentleman with prior history of psoriasis, currently on Otezla; as well as history of tongue cancer, not amenable to surgery, therefore status post radiation and chemotherapy; presented to [facility] after a mechanical fall and sustained a right hip fracture. 1. Right hip intertrochanteric fracture.? ? ? POD 2,?s/p Rt. hip IMN with Dr. Javed ? ? Good pain control, continue oxycodone, stool softeners, incentive spirometry, tolerating physical therapy, . 2. History of psoriasis, continue Otezla.? 3. History of tongue cancer, being followed at [facility], recommended to continue outpatient followup with radiation oncologist and oncologist as previously planned. 4. Normocytic anemia, question chronic and related to anemia of chronic disease with history of psoriasis ? ? 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 5. Deep vein thrombosis prophylaxis.? Continue aspirin for? Anticoagulation as per Orthopedic surgery. Quality Stroke Does the patient have a stroke diagnosis?: No VTE Prior VTE?: No VTE Risk Level:: Medical - moderate - high VTE Device Contraindication: N/A - Device Ordered VTE Drug Contraindication: Treatment Not Indicated
--- NOTE | 2020-10-04 10:25 | P.DS_ITS ---
DS: Providers Provider Date of Service: 10/04/20 Date of admission: 10/01/20 16:26 Primary care physician: Namrata Rubi MD Consults: 10/01/20 16:31 Consult to Orthopedics Routine Consulting Provider: Jaimee Javed Reason for consultation: right hip frature Has provider been notified: No DS: Diagnosis Discharge Diagnosis (1) Anemia: Status: Acute (2) Closed intertrochanteric fracture of right femur: Status: Acute DS: Medications Discharge Medications Home Medications: Home Medications Medication Instructions Recorded Confirmed apremilast 30 mg tablet (Otezla) 1 tab PO BID 10/01/20 10/01/20 Previous Rx's Medication Instructions Recorded acetaminophen 325 mg tablet 650 mg PO Q6H PRN 30 Days #240 tab 10/04/20 aspirin 325 mg tablet 325 mg PO BID@1000,2200 30 Days 10/04/20 #60 tab docusate sodium 100 mg capsule 100 mg PO BID 30 Days #60 cap 10/04/20 (Colace) oxycodone 5 mg tablet 5 mg PO Q4-6H PRN 7 Days #42 tab 10/04/20 walker #1 ea 10/04/20 DS: Summary Hospital Course Hospital Course: Mr. Mg is a 65 yo male who presented to the ED after sustaining a mechanical fall. X-rays obtained in the ED revealed a right hip intertrochanteric hip fracture. orthopedics as consulted for further evaluation and treatment. The patient was [facility] on the orthopedic service. The patient underwent a successful right hip IM Nail, they were transferred to PACU and then to the floor to recover. During their stay, their vitals were stable, afebrile at . Labs were unremarkable, H/H 9.3/28.6. POD 1 they were started on Aspirin 325mg po bid for DVT ppx, they also received Physical Therapy services twice a day. Prior to discharge, their dressing was changed, incision clean dry and intact, and the plan was to be discharged home with VNA services. Time Spent with Patient Time attestation: Total time spent providing and/or coordinating discharge services: Discharge coordination time: Less than 30 minutes Quality: Stroke Does the patient have a stroke diagnosis?: No Physical Exam Vital Signs: Vital Signs: Last Vital Signs Temp 97.4 F 10/04/20 08:00 Pulse 90 10/04/20 08:00 Resp 18 10/04/20 08:00 BP 133/83 10/04/20 08:00 Pulse Ox 99 10/04/20 08:00 Body Mass Index 26.8 Extrem: Other: Righ hip no ecchymosis, redness, or drainage. Dressings are clean, dry, and intact. NVI. DS: Data Data Completed and Pending Labs on day of discharge: Laboratory Results - last 24 hr 10/03/20 10/03/20 08:50 08:50 Ferritin 1731 H Vitamin B12 578 Folate 4.9 Discharge Plan Discharge Patient Disposition: Home Health Service Discharge Diagnosis: s/p right hip IMN Referrals: Arianne SADLER [Outside] - 1 Day ([facility] PATIENT REQUESTING TRANSPORTATION AND WILLING TO SELF PAY TRI-LEVEL FLOOR PLAN AND HE CAN NOT USE THE STAIRS WITH [facility] WALKER. [facility] IN PLACE OF WHEELCHAIR VAN ) Elizabeth Vallejo PA-C [Physician Area Safety Manager] - 1 Week (F/u with orthopedics in 2 weeks ) Namrata Rubi MD [Primary Care Provider] - 1 Week Discharge Medications: New acetaminophen 325 mg Tablet 650 mg PO Q6H PRN (Reason: Pain, Mild (Pain Scale 1-3)) 30 Days Qty: 240 RF: 0 aspirin 325 mg Tablet 325 mg PO BID@1000,2200 30 Days Qty: 60 RF: 0 oxycodone 5 mg Tablet 5 mg PO Q4-6H PRN (Reason: Pain, Moderate (Pain Scale 4-6) 7 Days Qty: 42 RF: 0 docusate sodium [Colace] 100 mg capsule 100 mg PO BID 30 Days Qty: 60 RF: 0 Continued Otezla 30 mg tablet 1 tab PO BID RF: 0 No Action (DME) walker Misc See Rx Instructions .ROUTE .MEDSUPPLY Qty: 1 RF: 0 Discharge Orders: Discharge Order (Routine); Ordered 10/04/20 Ordered By: Elizabeth Vallejo Diet: regular diet Activity on Discharge: Use cane or walker Stand Alone Forms: Patient Portal Discharge page Care Plan Goals: restore fxn of right hip Health Concerns: none Plan of Treatment: Gait training, strengthening, ADLs Continue ASA for dvt ppx x4 weeks Keep dressing clean, dry and intact-no showering or tub baths Follow up with Orthopedics in 2 weeks Assessment: stable and clear for d/c Discharge Date/Time: 10/04/20 13:33
--- NOTE | 2020-10-04 10:41 | MHC.CM.PN ---
NURSE FIRE SAFETY INSPECTOR NTOE ELECTRONIC MEDICAL RECORD REVIEWED ALONG WITH CASE DISCUSSED WITH STAFF NURSE AND ORTHOPEDIC SURGICAL PA DISCHARGE PLAN HOME TODAY WITH [facility] MEDICARE IMMUPDATED 10/02/20 PCP Marisabel RUBIO PATIENT INSTRUCTED TO CALL FOR POST HOSPITAL DISCHARGE FOLLOW UP TRANSPORTATION
== END 2020-10-04 13:33 | disposition home health service (06) | DRG 482 ==
LOC: HO.ED 15:53 → HO.EDOVER 17:24 → HO.S3 10-02 00:20
PROVIDERS: Orthopaedic Surgery; Physician Assistant Medical; Admitting Provider Hospitalist; Emergency Provider Emergency Medicine; PCP Internal Medicine; Visit Provider Hospitalist
PROC: 0QS604Z Reposition Right Upper Femur with Internal Fixation Device, Open Approach (ICD-10-PCS; principal; 2020-10-02 11:10)
DX: S72.141A Displaced intertrochanteric fracture of right femur, initial encounter for closed fracture (principal); W18.30XA Fall on same level, unspecified, initial encounter; Y93.H2 Activity, gardening and landscaping; L40.9 Psoriasis, unspecified; Y92.007 Garden or yard of unspecified non-institutional (private) residence as the place of occurrence of the external cause; D63.8 Anemia in other chronic diseases classified elsewhere; Y99.9 Unspecified external cause status; Z85.810 Personal history of malignant neoplasm of tongue; Z20.822 Contact with and (suspected) exposure to COVID-19; Z85.118 Personal history of other malignant neoplasm of bronchus and lung; Z87.891 Personal history of nicotine dependence; Z79.82 Long term (current) use of aspirin; Z79.899 Other long term (current) drug therapy
CPT/HCPCS: 36415; 71045; 73502; 80053; 82607; 82728; 82746; 83540; 83735; 85014; 85018; 85025; 85610; 86850; 86900; 86901; 87635; 93005; 97110; 97116; 97162; 97165; 99285; C1713; C1769; J0330; J0690; J1100; J1170; J1885; J2250; J2270; J2405; J3010

== ENCOUNTER → 2020-10-15 08:37 | Outpatient (BNVA) | payer MEDICARE, OTHER, SELFPAY | PROVIDERS: PCP Internal Medicine; Visit Provider Physician Assistant | DX: S72.111D Displaced fracture of greater trochanter of right femur, subsequent encounter for closed fracture with routine healing (principal) | CPT/HCPCS: 99212 ==

== ENCOUNTER 2020-11-13 07:19 | Outpatient (REF) | payer MEDICARE, OTHER, SELFPAY ==
--- NOTE | ~2020-11-13 | XR_ITS ---
EXAMINATION: XR HIP, RIGHT CLINICAL INFORMATION: Right hip pain. COMPARISON: Right hip radiographs dated 10/01/2020. TECHNIQUE: Two views of the right hip. FINDINGS: Right femoral intramedullary nail and dynamic hip screw with a distal stabilization screw. No acute hardware fracture. No perihardware lucency to suggest loosening or infection. Redemonstration of an intertrochanteric fracture in anatomic alignment with interval new bone/callus formation. [id number] right hip joint space narrowing with subchondral cirrhosis, subchondral cystic change, and marginal osteophytes. XR/XR hip RT min 2V IMPRESSION: Right hip ORIF without evidence of complication. Intertrochanteric fracture in anatomic alignment with interval new bone/callus formation.
== END 2020-11-13 07:20 | disposition home or self-care (01) ==
LOC: HO.HOSX 07:19
PROVIDERS: Visit Provider Physician Assistant
DX: S72.111D Displaced fracture of greater trochanter of right femur, subsequent encounter for closed fracture with routine healing (principal)
CPT/HCPCS: 73502; 99212